=== PATIENT | female | born 1990 | race Caucasian/White ===

== ENCOUNTER 2017-08-28 21:29 | Emergency (ER) | payer OTHER ==
[2017-08-28] MEDS ORDERED: DIPHENHYDRAMINE HCL 50 MG/ML VIAL IV ONE (22:15)
[2017-08-28] MEDS ORDERED: METOCLOPRAMIDE HCL INJ/PF 10 MG/2 ML SDV IV ONE (22:15)
[2017-08-28] MEDS ORDERED: IPRATROPIUM/ALBUTEROL 0.5-2.5 MG/3 ML AMPUL NEB ONE (22:15)
[2017-08-28] MEDS ORDERED: NORMAL SALINE 1000 ML 1,000 ML IV ONE ×2 (22:17→23:18)
[2017-08-28 23:15] LABS: ABSOLUTE LYMPHOCYTES (AUTO) 1.2 10^3/uL (0.5-4.7); ABSOLUTE MONOCYTES (AUTO) 0.4 10^3/uL (0.1-1.4); ABSOLUTE NEUT (AUTO) 6.1 10^3/uL (1.7-8.2); BASOPHILS % (AUTO) 0.2 % (0-2); EOSINOPHILS % (AUTO) 0.1 % (0-6); HEMATOCRIT 31.8 % (36.0-47.0); HEMOGLOBIN 11.4 g/dL (12.0-15.5); LYMPHOCYTES % (AUTO) 15.4 % (13-45); MEAN CORPUSCULAR HEMOGLOBIN 34.3 pg (27.0-33.4); MEAN CORPUSCULAR HGB CONC 35.8 g/dL (32.0-36.0); MEAN CORPUSCULAR VOLUME 96 fl (80-97); MONOCYTES % (AUTO) 5.5 % (3-13); PLATELET COUNT 203 10^3/uL (150-450); RED BLOOD COUNT 3.32 10^6/uL (3.72-5.28); RED CELL DISTRIBUTION WIDTH 13.4 % (11.5-14.0); SEGMENTED NEUTROPHILS % (AUTO) 78.8 % (42-78); TOTAL CELLS COUNTED % (AUTO) 100 %; WHITE BLOOD COUNT 7.7 10^3/uL (4.0-10.5)
[2017-08-29] MEDS ORDERED: ALBUTEROL SULFATE 0.083% NEB 2.5 MG/3 ML AMPUL NEB ONE (00:19)
[2017-08-29 00:45] VITALS: BP 123/75
--- NOTE | 2017-08-29 03:04 | ER Document Report ---
ED General - General Chief Complaint: Breathing Difficulty Stated Complaint: TROUBLE BREATHING Time Seen by Provider: 08/28/17 22:02 TRAVEL OUTSIDE OF THE [place] IN LAST 30 DAYS: No - HPI Patient complains to provider of: Difficulty breathing Notes: Patient coming in for difficulty breathing. 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 Otherwise patient states multiple other reasons that she cannot give this time states that she was at local [facility] when she went down 1 of the hand lotion aisles did have a significant perfusion smell became significantly short of breath. Patient does admit to having a history of asthma. Patient states no improvement with her albuterol inhaler denies any fevers chills nausea vomiting denies any recent travel. Patient states the father's any of her pregnancies ever got along with 12 weeks currently she is 35 weeks prior pregnancies did not complicate her asthma upon my evaluation patient is actively vomiting patient currently states she is on Reglan. Patient states last time she took the Reglan was 3:00 today - Related Data Allergies/Adverse Reactions: ceftriaxone [From Rocephin] Allergy (Verified 08/29/17 01:41) metronidazole [From Flagyl] Allergy (Verified 08/29/17 01:41) tioconazole [From Monistat 1 (tioconazole)] Allergy (Verified 08/29/17 01:41) Past Medical History - Social History Smoking Status: Former Smoker Chew tobacco use (# tins/day): No Frequency of alcohol use: None Drug Abuse: None Family History: Reviewed & Not Pertinent Patient has suicidal ideation: No Patient has homicidal ideation: No - Past Medical History Cardiac Medical History: Reports: Hx Hypertension Pulmonary Medical History: Reports: Hx Asthma Renal/ Medical History: Denies: Hx Peritoneal Dialysis Past Surgical History: Reports: Hx Oral Surgery - wisdom teeth Review of Systems - Review of Systems Constitutional: No symptoms reported EENT: No symptoms reported Cardiovascular: No symptoms reported Respiratory: Short of breath Gastrointestinal: Nausea, Vomiting Genitourinary: No symptoms reported Female Genitourinary: No symptoms reported Musculoskeletal: No symptoms reported Skin: No symptoms reported Hematologic/Lymphatic: No symptoms reported Neurological/Psychological: No symptoms reported -: Yes All other systems reviewed and negative Physical Exam - Vital signs Vitals: Temp Pulse Resp BP Pulse Ox 98 F 102 H 24 H 94/51 L 100 08/28/17 21:37 08/28/17 21:37 08/28/17 21:37 08/28/17 21:37 08/28/17 21:37 Interpretation: Normal - General General appearance: Appears well, Alert - HEENT Head: Normocephalic, Atraumatic Eyes: Normal Pupils: PERRL - Respiratory Respiratory status: No respiratory distress Chest status: Nontender Breath sounds: Wheezing - Scattered Chest palpation: Normal - Cardiovascular Rhythm: Regular Heart sounds: Normal auscultation Murmur: No - Abdominal Inspection: Normal, Gravid female Distension: No distension Bowel sounds: Normal Tenderness: Nontender Organomegaly: No organomegaly - Back Back: Normal, Nontender - Extremities General upper extremity: Normal inspection, Nontender, Normal color, Normal ROM , Normal temperature General lower extremity: Normal inspection, Nontender, Normal color, Normal ROM , Normal temperature, Normal weight bearing. No: Janki's sign - Neurological Neuro grossly intact: Yes Cognition: Normal Orientation: AAOx4 Spencer Coma Scale Eye Opening: Spontaneous [place] Coma Scale Verbal: Oriented [place] Coma Scale Motor: Obeys Commands [place] Coma Scale Total: 15 Speech: Normal Motor strength normal: LUE, RUE, LLE, RLE Sensory: Normal - Psychological Associated symptoms: Normal affect, Normal mood - Skin Skin Temperature: Warm Skin Moisture: Dry Skin Color: Normal Course - Re-evaluation Re-evalutation: 08/29/17 04:19 Patient with improvement of her breathing initially also improvement of her nausea and vomiting. Patient did relate to nursing staff that she began to have contractions and felt like her water broke there is no evidence of this in the bed or on the wheelchair however patient stated that her contractions were becoming more frequent therefore after breathing treatment was administered lung sounds are clear we did transfer the patient to OB triage - Vital Signs Vital signs: Temp Pulse Resp BP Pulse Ox 98 F 102 H 22 H 123/75 100 08/28/17 21:37 08/28/17 21:37 08/29/17 00:02 08/29/17 00:02 08/29/17 00:02 - Laboratory Result Diagrams: 08/28/17 23:00 08/28/17 23:00 Laboratory results interpreted by me: 08/28/17 23:00 RBC 3.32 L Hgb 11.4 L Hct 31.8 L MCH 34.3 H Seg Neutrophils % 78.8 H Discharge - Discharge Clinical Impression: SOB (shortness of breath), Abdominal cramps Qualifiers: Weeks of gestation: 35 weeks Qualified Code(s): Z3A.35 - 35 weeks gestation of Condition: Good Disposition: HOME, SELF-CARE Instructions: Dyspnea, Nonspecific ([facility]), ([facility]) Additional Instructions: Follow-up with your primary care physician. Your laboratory studies today did not show any significant pathology. He may have a slight exacerbation of her asthma. Please continue with your inhaler at home or the inhaler prescribed to use 2 puffs every 4 hours as needed for shortness of breath. Prescriptions: Albuterol Sulfate [Proair HFA Inhalation Aerosol 8.5 gm MDI] 2 puff IH Q4H PRN # 1 mdi PRN Reason: Forms: Return to Work
== END 2017-08-29 00:44 | disposition home or self-care (01) ==
LOC: ER 21:29
DX: O26.93 Pregnancy related conditions, unspecified, third trimester (principal); R06.02 Shortness of breath; R10.84 Generalized abdominal pain; Z3A.35 35 weeks gestation of pregnancy
CPT/HCPCS: 94640; 99285; 96361; 96374; 96375; 36415; 85025; J1200; J2765; J7030; J7620

== ENCOUNTER 2017-08-29 00:10 | Outpatient (CLI) | payer OTHER ==
[2017-08-29 01:11] LABS: APPEARANCE,URINE CLEAR; BILIRUBIN,URINE NEGATIVE (NEGATIVE); COLOR,URINE YELLOW; GLUCOSE, URINE NEGATIVE (NEGATIVE); KETONES,URINE TRACE mg/dL (NEGATIVE); LEUKOCYTE ESTERASE,URINE NEGATIVE (NEGATIVE); NITRITE,URINE NEGATIVE (NEGATIVE); PROTEIN,URINE NEGATIVE (NEGATIVE); URINE SPECIFIC GRAVITY 1.012; UROBILINOGEN,URINE NEGATIVE mg/dL (<2.0)
[2017-08-29 01:38] LABS: URINE AMPHETAMINES SCREEN NEGATIVE; URINE BARBITURATES SCREEN NEGATIVE; URINE BENZODIAZEPINES SCREEN NEGATIVE; URINE COCAINE SCREEN NEGATIVE; URINE MARIJUANA (THC) SCREEN NEGATIVE; URINE METHADONE SCREEN NEGATIVE; URINE PHENCYCLIDINE SCREEN NEGATIVE
[2017-08-29 01:46] LABS: AMNISURE (ROM) NEGATIVE (NEGATIVE)
--- NOTE | 2017-08-29 02:24 | Non Stress Test Report ---
Non Stress Test Datetime Report Generated by CPN: 08/29/2017 02:24 DEMOGRAPHIC Test Number: 1 EGA NST: 35.2 INDICATION Indication for Study: Ordered by Provider MONITORING Monitor Explained: Monitor Explained; Test Explained; Patient Verbalized Understanding Time on Monitor: 08/29/2017 01:10 Time off Monitor: 08/29/2017 01:53 NST Duration: 43 NST INTERVENTIONS NST Interventions: PO Hydration Physician Notified NST: Dr. Marcus BABY A: [id number] BABY A Movement : Present Contraction Frequency : 0 FHR Baseline : 145 Accelerations : 15X15 Decelerations : None Variability : Moderate 6-25bpm NST Review: Meets Criteria for Reactive NST NST Review and Verified By : BEATRIS Edgar NST Results: Reactive NST REPORT Report Trigger: Send Report
== END 2017-08-29 02:16 | disposition home or self-care (01) ==
LOC: LC 00:10
PROVIDERS: ATTEND Obstetrics & Gynecology Gynecology
PROC: 4A1HXCZ Monitoring of Products of Conception, Cardiac Rate, External Approach (ICD-10-PCS; principal; 2017-08-29)
DX: O47.03 False labor before 37 completed weeks of gestation, third trimester (principal); Z3A.35 35 weeks gestation of pregnancy
CPT/HCPCS: 80307; 81001; 84112; 94760

== ENCOUNTER 2017-10-07 21:54 | Emergency (ER) | payer OTHER ==
--- NOTE | 2017-10-08 00:14 | ER Document Report ---
ED General - General Chief Complaint: Abdominal Pain Stated Complaint: STOMACH PAIN Time Seen by Provider: 10/07/17 23:21 Notes: Patient is a 27-year-old female who approximately 12 days ago had a delivery of her . Patient says since then she has continued to have recurrent vaginal bleeding. She says she just has not felt quite "right" since her discharge from hospital. 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 Delivery was performed at [facility]. She did go to the [facility] ER 2 days ago and they told everything was okay. Patient still feels that something is not right. She thinks that her stitches are coming undone. She denies any fevers. No dysuria. No other complaints this time. She does have history of lupus. TRAVEL OUTSIDE OF THE [place] IN LAST 30 DAYS: No - Related Data Allergies/Adverse Reactions: ceftriaxone [From Rocephin] Allergy (Verified 08/29/17 01:41) metronidazole [From Flagyl] Allergy (Verified 08/29/17 01:41) Metronidazole HCl [From Flagyl] Allergy (Verified 02/15/17 22:57) tioconazole [From Monistat 1 (tioconazole)] Allergy (Verified 08/29/17 01:41) Amphetamine Aspartate * [From Adderall] Adverse Reaction (Verified 02/15/17 22: 57) amphetamine sulfate [From Adderall] Adverse Reaction (Verified 02/15/17 22:57) dextroamphetamine [From Adderall] Adverse Reaction (Verified 02/15/17 22:57) methylphenidate HCl [From Ritalin] Adverse Reaction (Verified 02/15/17 22:57) Past Medical History - Social History Smoking Status: Former Smoker Chew tobacco use (# tins/day): Yes Frequency of alcohol use: None Drug Abuse: None Family History: Reviewed & Not Pertinent Patient has suicidal ideation: No Patient has homicidal ideation: No - Past Medical History Cardiac Medical History: Reports: Hx Hypertension Pulmonary Medical History: Reports: Hx Asthma Renal/ Medical History: Denies: Hx Peritoneal Dialysis Psychiatric Medical History: Reports: Hx Attention Deficit Hyperactivity Disorder, Hx Bipolar Disorder, Hx Depression - Major Past Surgical History: Reports: Hx Gynecologic Surgery - , Hx Oral Surgery - wisdom teeth - Immunizations Hx Diphtheria, Pertussis, Tetanus Vaccination: Yes Review of Systems - Review of Systems Notes: My Normal Review Basic REVIEW OF SYSTEMS: CONSTITUTIONAL : Denies fever, chills, or sweats. Denies recent illness. EENT: Denies eye, ear, throat, or mouth pain or symptoms. Denies nasal or sinus congestion. RESPIRATORY: Denies cough, cold, or chest congestion. Denies shortness of breath, difficulty breathing, or wheezing. GASTROINTESTINAL: Lower abdominal pain. Some nausea GENITOURINARY: Denies difficulty urinating, painful urination, burning, frequency, or blood in urine. FEMALE GENITOURINARY: Vaginal bleeding MUSCULOSKELETAL: Denies neck or back pain or joint pain or swelling. SKIN: Denies rash or skin lesions. NEUROLOGICAL: Denies altered mental status or loss of consciousness. Denies headache. Denies weakness or paralysis or loss of use of either side. Denies problems with gait or speech. Denies sensory or motor loss. ALL OTHER SYSTEMS REVIEWED AND NEGATIVE. Physical Exam - Vital signs Vitals: Temp Pulse Resp BP Pulse Ox 98.5 F 93 16 127/62 H 98 10/07/17 23:12 10/07/17 23:12 10/07/17 23:12 10/07/17 23:12 10/07/17 23:12 - Notes Notes: General Appearance: Well nourished, alert, cooperative, no acute distress, moderate obvious discomfort. Vitals: reviewed, See vital signs table. Eyes: PERRL, EOMI, Conjuctiva clear Mouth: No decreasd moisture Lungs: No wheezing, No rales, No rhonci, No accessory muscle use, good air exchange bilaterally. Heart: Normal rate, Regular rythm, No murmur, no rub Abdomen: Normal BS, soft, No rigidity, incision site is well-appearing without any redness or swelling around the site. Small amount of pain to palpation along the left lateral aspect of the incision site. No drainage from the incision site., No guarding, no rebound, Pelvic exam: Normal external genitalia. Some dry blood over external vaginal area from recent vaginal bleeding. No abnormal discharge in vaginal vault. She does have small amount of blood in vaginal vault without clots. Pelvic exam performed with female macaroni makerRashmi RN. Extremities: strength 5/5 in all extremities, good pulses in all extremities, no swelling or tenderness in the extremities, no edema. Skin: warm, dry, appropriate color, no rash Neuro: speech clear, oriented x 3, normal affect, responds appropriately to questions. Course - Re-evaluation Re-evalutation: 10/08/17 22:34 Patient's pelvic exam showed some blood in vaginal vault but no large clots were life-threatening hemorrhage. Denies any abnormal discharge or signs of infection. Wet prep does have some bacteria in it. Urinalysis nonspecific and most likely has some white blood cells related to contamination. On exam patient's abdomen is fine. Her wound looks well. Patient herself looks very well and is not showing signs of sepsis or life-threatening infection. Does not have a leukocytosis. She is not currently anemic. I did call and speak with the OB doctor at [facility], Dr. Dunn. She is very familiar with this patient in her care. Dr. Dunn agrees that antibiotics are needed at this time. She said she will have the office call the patient first in the morning and give her follow-up appointment next 1-2 days. Informed patient to return to ER if she has worsening bleeding, fevers, or worsening pain. I informed her of the plan to follow-up with her doctor next 1-2 days. Patient has been agree with plan. Dictation of this chart was performed using voice recognition software; therefore, there may be some unintended grammatical errors. - Vital Signs Vital signs: Temp Pulse Resp BP Pulse Ox 99.3 F 85 18 109/79 98 10/08/17 03:20 10/08/17 03:20 10/08/17 02:08 10/08/17 03:00 10/08/17 03:20 - Laboratory Result Diagrams: 10/08/17 00:15 Laboratory results interpreted by me: 10/08/17 02:10 Urine Blood LARGE H Ur Leukocyte Esterase MODERATE H Urine Ascorbic Acid 40 H Discharge - Discharge Clinical Impression: Pelvic pain, Vaginal bleeding Condition: Good Disposition: HOME, SELF-CARE Additional Instructions: Please return to the ER immediately if you have fevers, worsening pain, increasing bleeding, or have concerns that you are worsening. I spoke with Dr. Dunn who will have the OB office call your house today to give you an appointment in the next 1-2 days Referrals: VINNY HAMEED PA [Primary Care Provider] - Follow up as needed
[2017-10-08 00:31] LABS: ABSOLUTE LYMPHOCYTES (AUTO) 1.6 10^3/uL (0.5-4.7); ABSOLUTE MONOCYTES (AUTO) 0.3 10^3/uL (0.1-1.4); ABSOLUTE NEUT (AUTO) 3.4 10^3/uL (1.7-8.2); BASOPHILS % (AUTO) 0.2 % (0-2); EOSINOPHILS % (AUTO) 0.9 % (0-6); HEMOGLOBIN 12.9 g/dL (12.0-15.5); LYMPHOCYTES % (AUTO) 30.2 % (13-45); MEAN CORPUSCULAR HEMOGLOBIN 32.4 pg (27.0-33.4); MEAN CORPUSCULAR HGB CONC 34.8 g/dL (32.0-36.0); MEAN CORPUSCULAR VOLUME 93 fl (80-97); MONOCYTES % (AUTO) 6.3 % (3-13); PLATELET COUNT 383 10^3/uL (150-450); RED BLOOD COUNT 3.97 10^6/uL (3.72-5.28); RED CELL DISTRIBUTION WIDTH 13.8 % (11.5-14.0); SEGMENTED NEUTROPHILS % (AUTO) 62.4 % (42-78); TOTAL CELLS COUNTED % (AUTO) 100 %; WHITE BLOOD COUNT 5.4 10^3/uL (4.0-10.5)
[2017-10-08 00:33] LABS: RBCS (WET MOUNT) 3+ RBCS SEEN; T.VAGINALIS (WET MOUNT) NO TRICHOMONAS SEEN; WBCS (WET MOUNT) 2+ WBCS SEEN; YEAST (WET MOUNT) NO YEAST SEEN
[2017-10-08 00:34] LABS: BACTERIA (WET MOUNT) 3+ BACTERIA SEEN; EPITHELIALS (WET MOUNT) 3+ EPITHELIALS SEEN
[2017-10-08 02:33] LABS: APPEARANCE,URINE SLIGHTLY-CLOUDY; BILIRUBIN,URINE NEGATIVE (NEGATIVE); COLOR,URINE YELLOW; GLUCOSE, URINE NEGATIVE (NEGATIVE); KETONES,URINE NEGATIVE (NEGATIVE); LEUKOCYTE ESTERASE,URINE MODERATE (NEGATIVE); NITRITE,URINE NEGATIVE (NEGATIVE); PROTEIN,URINE NEGATIVE (NEGATIVE); URINE SPECIFIC GRAVITY 1.012; UROBILINOGEN,URINE NEGATIVE mg/dL (<2.0)
--- NOTE | 2017-10-08 02:53 | RADIOLOGY REPORT (SQ) ---
EXAM DESCRIPTION: XR ABDOMEN 2 VIEWS SUPINE ERECT COMPLETED DATE/TME: 10/08/2017 00:12 CLINICAL HISTORY: 27 years Female, abdominal pain COMPARISON: None. NUMBER OF VIEWS/TECHNIQUE: 2 FINDINGS: Intestinal gas pattern is within normal limits. No suspicious calcification. Grossly intact skeletal structures. IMPRESSION: No acute findings.
[2017-10-08 03:21] VITALS: BP 109/79
== END 2017-10-08 04:12 | disposition home or self-care (01) ==
LOC: ER 21:54
DX: O90.9 Complication of the puerperium, unspecified (principal); R10.2 Pelvic and perineal pain; O72.1 Other immediate postpartum hemorrhage
CPT/HCPCS: 36415; 74019; 81001; 84702; 85025; 87210; 99284

== ENCOUNTER 2017-11-05 10:18 | Emergency (ER) | payer OTHER ==
[2017-11-05] MEDS ORDERED: NORMAL SALINE 1000 ML 1,000 ML IV ONE (10:35)
--- NOTE | 2017-11-05 10:37 | ER Document Report ---
ED Medical Screen (RME) - General Chief Complaint: Vaginal Pain Stated Complaint: URINARY ISSUE Time Seen by Provider: 11/05/17 10:34 Notes: 27 years old female with a history of lupus was sent over by the primary care physician Dr. Villegas, for bleeding per urethra. And general body aches and pain flank pains. No fever chills or other constitutional times. TRAVEL OUTSIDE OF THE [place] IN LAST 30 DAYS: No - Related Data Allergies/Adverse Reactions: ceftriaxone [From Rocephin] Allergy (Verified 11/05/17 10:19) metronidazole [From Flagyl] Allergy (Verified 11/05/17 10:19) Metronidazole HCl [From Flagyl] Allergy (Verified 11/05/17 10:19) tioconazole [From Monistat 1 (tioconazole)] Allergy (Verified 11/05/17 10:19) Amphetamine Aspartate * [From Adderall] Adverse Reaction (Verified 11/05/17 10: 19) amphetamine sulfate [From Adderall] Adverse Reaction (Verified 11/05/17 10:19) dextroamphetamine [From Adderall] Adverse Reaction (Verified 11/05/17 10:19) methylphenidate HCl [From Ritalin] Adverse Reaction (Verified 11/05/17 10:19) Past Medical History - Past Medical History Cardiac Medical History: Reports: Hx Hypertension Pulmonary Medical History: Reports: Hx Asthma Renal/ Medical History: Denies: Hx Peritoneal Dialysis Psychiatric Medical History: Reports: Hx Attention Deficit Hyperactivity Disorder, Hx Bipolar Disorder, Hx Depression - Major Past Surgical History: Reports: Hx Gynecologic Surgery - , Hx Oral Surgery - wisdom teeth - Immunizations Hx Diphtheria, Pertussis, Tetanus Vaccination: Yes Physical Exam - Vital signs Vitals: Temp Pulse Resp BP Pulse Ox 98.5 F 92 18 107/78 100 11/05/17 10:11/05/17 10:11/05/17 10:11/05/17 10:29 11/05/17 10:29 Course - Vital Signs Vital signs: Temp Pulse Resp BP Pulse Ox 98.5 F 92 18 107/78 100 11/05/17 10:29 11/05/17 10:29 11/05/17 10:29 11/05/17 10:29 11/05/17 10:29 Doctor's Discharge - Discharge Referrals: VINNY HAMEED PA [Primary Care Provider] - Follow up as needed
[2017-11-05 12:08] LABS: ABSOLUTE LYMPHOCYTES (AUTO) 1.5 10^3/uL (0.5-4.7); ABSOLUTE MONOCYTES (AUTO) 0.3 10^3/uL (0.1-1.4); ABSOLUTE NEUT (AUTO) 2.9 10^3/uL (1.7-8.2); BASOPHILS % (AUTO) 0.1 % (0-2); HEMATOCRIT 37.3 % (36.0-47.0); HEMOGLOBIN 12.8 g/dL (12.0-15.5); LYMPHOCYTES % (AUTO) 32.5 % (13-45); MEAN CORPUSCULAR HEMOGLOBIN 31.6 pg (27.0-33.4); MEAN CORPUSCULAR HGB CONC 34.4 g/dL (32.0-36.0); MEAN CORPUSCULAR VOLUME 92 fl (80-97); MONOCYTES % (AUTO) 5.8 % (3-13); PLATELET COUNT 262 10^3/uL (150-450); RED BLOOD COUNT 4.06 10^6/uL (3.72-5.28); RED CELL DISTRIBUTION WIDTH 12.9 % (11.5-14.0); SEGMENTED NEUTROPHILS % (AUTO) 60.6 % (42-78); TOTAL CELLS COUNTED % (AUTO) 100 %; WHITE BLOOD COUNT 4.7 10^3/uL (4.0-10.5)
[2017-11-05 12:15] LABS: APPEARANCE,URINE CLEAR; BILIRUBIN,URINE NEGATIVE (NEGATIVE); COLOR,URINE STRAW; GLUCOSE, URINE NEGATIVE (NEGATIVE); KETONES,URINE NEGATIVE (NEGATIVE); LEUKOCYTE ESTERASE,URINE NEGATIVE (NEGATIVE); NITRITE,URINE NEGATIVE (NEGATIVE); PROTEIN,URINE NEGATIVE (NEGATIVE); URINE SPECIFIC GRAVITY 1.012; UROBILINOGEN,URINE NEGATIVE mg/dL (<2.0)
--- NOTE | 2017-11-05 12:15 | ER Document Report ---
ED General - General Chief Complaint: Vaginal Pain Stated Complaint: URINARY ISSUE Time Seen by Provider: 11/05/17 10:34 Notes: Patient says that she has been seeing blood in her urine and from her urethra for the past several weeks. She is also having some urgency and frequency of urination. About 5 weeks ago, patient had a delivering her first child. She had some apparent infection with fevers and there was concern for the health and was performed. Patient was in the hospital for about 4 days and discharged without any sequelae. Baby is fine. She is this patient's first child and first for this patient. Patient is not nursing her baby. Says she has been running some low-grade fevers. Patient noticed this blood occurring about 5 weeks ago. She has had some nausea and vomited blood recently. She says that happens "all the time". Denies any chest pains, difficulty breathing or shortness of breath, or abdominal pains. Patient says that she is had itching of her arms and her legs and all over her body for a long time. Also says that she periodically has petechiae, although she does not have any to see today. Patient has a history of asthma, lupus, sees Dr. Wilson for her lupus. On Depakote for control. TRAVEL OUTSIDE OF THE [place] IN LAST 30 DAYS: No - Related Data Allergies/Adverse Reactions: ceftriaxone [From Rocephin] Allergy (Verified 11/05/17 10:19) metronidazole [From Flagyl] Allergy (Verified 11/05/17 10:19) Metronidazole HCl [From Flagyl] Allergy (Verified 11/05/17 10:19) tioconazole [From Monistat 1 (tioconazole)] Allergy (Verified 11/05/17 10:19) Amphetamine Aspartate * [From Adderall] Adverse Reaction (Verified 11/05/17 10: 19) amphetamine sulfate [From Adderall] Adverse Reaction (Verified 11/05/17 10:19) Androgenic Anabolic Steroid Adverse Reaction (Verified 11/05/17 10:39) dextroamphetamine [From Adderall] Adverse Reaction (Verified 11/05/17 10:19) methylphenidate HCl [From Ritalin] Adverse Reaction (Verified 11/05/17 10:19) Past Medical History - Social History Smoking Status: Current Some Day Smoker Frequency of alcohol use: None Drug Abuse: None Family History: Reviewed & Not Pertinent Patient has suicidal ideation: No Patient has homicidal ideation: No - Past Medical History Cardiac Medical History: Denies: Hx Hypertension Pulmonary Medical History: Reports: Hx Asthma Endocrine Medical History: Denies: Hx Diabetes Mellitus Type 1, Hx Diabetes Mellitus Type 2 Renal/ Medical History: Denies: Hx Renal Insufficiency GI Medical History: Reports: Other - No history of any liver disease. Psychiatric Medical History: Reports: Hx Attention Deficit Hyperactivity Disorder, Hx Bipolar Disorder, Hx Depression - Major Past Surgical History: Reports: Hx Section, Hx Gynecologic Surgery - , Hx Oral Surgery - wisdom teeth - Immunizations Hx Diphtheria, Pertussis, Tetanus Vaccination: Yes Review of Systems - Review of Systems Notes: REVIEW OF SYSTEMS: CONSTITUTIONAL : Denies fever. EENT: Denies eye, ear, nose or mouth or throat pain or other symptoms. CARDIOVASCULAR: Denies chest pain. RESPIRATORY: Denies cough, chest congestion, or shortness of breath. GASTROINTESTINAL: Denies abdominal pain or nausea, vomiting, or diarrhea. GENITOURINARY: See HPI. MUSCULOSKELETAL: Denies back or neck pain. Denies joint pain or swelling. SKIN: Denies any rash or skin lesions. Complains of chronic itching and occasional petechiae, although none present at this time. NEUROLOGICAL: Denies LOC or altered mental status. Denies headache. Denies sensory loss or motor deficits. ALL OTHER SYSTEMS REVIEWED AND NEGATIVE. Physical Exam - Vital signs Vitals: Temp Pulse Resp BP Pulse Ox 98.5 F 92 18 107/78 100 11/05/17 10:29 11/05/17 10:29 11/05/17 10:29 11/05/17 10:11/05/17 10:29 Interpretation: Normal - Notes Notes: PHYSICAL EXAMINATION: GENERAL: Well-appearing, in no acute distress. Vital signs are all essentially normal. Afebrile. HEAD: Atraumatic, normocephalic. ENT: oropharynx clear without exudates. Moist mucous membranes. NECK: Normal range of motion, supple. LUNGS: Breath sounds clear and equal bilaterally. HEART: Regular rate and rhythm without murmurs. ABDOMEN: Soft, nontender. No guarding or rebound. No masses. BACK: No tenderness throughout entire back. EXTREMITIES: Normal range of motion without pain. NEUROLOGICAL: Normal speech, normal gait. Normal sensory, motor, and reflex exams. Awake, alert, and oriented x3. Cranial nerves normal. PSYCH: Normal mood, normal affect. SKIN: Warm, dry, no rashes. No lesions. No petechiae. Course - Re-evaluation Re-evalutation: 11/05/17 13:59 Patient's entire workup is completely normal. Only a single red cell seen on patient's urinalysis. Urine culture ordered. Patient was advised of all these findings. Recommended she follow-up with her primary care provider for referral to a urologist for further evaluation if symptoms persist. - Vital Signs Vital signs: Temp Pulse Resp BP Pulse Ox 98.3 F 97 16 96/51 L 99 11/05/17 13:51 11/05/17 13:51 11/05/17 11:30 11/05/17 13:51 11/05/17 13:51 - Laboratory Result Diagrams: 11/05/17 11:36 11/05/17 11:36 Laboratory results interpreted by me: 11/05/17 11/05/17 11:00 11:36 Calcium 10.4 H Urine Blood SMALL H - Diagnostic Test Radiology reviewed: Image reviewed, Reports reviewed - CT of the abdomen and pelvis without contrast, stone survey, was completely normal and negative. Discharge - Discharge Clinical Impression: Hematuria Condition: Stable Disposition: HOME, SELF-CARE Additional Instructions: Hematuria Hematuria, or blood in your urine, can be caused by minor medical problems , such as a bladder infection, or by more serious medical conditions, such as kidney stones or even tumors of the bladder or kidney. If the cause of the hematuria is known (such as a bladder infection) and can be treated, it may not need further evaluation. If the cause is not known, it will usually require further evaluation by a specialist, such as a urologist. In particular, unexplained hematuria in the older patient must be evaluated to rule out a serious condition, such as a bladder or kidney tumor. If the hematuria worsens or you are passing clots and then are unable to urinate, you should be re-evaluated. A catheter may need to be placed in the bladder to permit passage of urine. If you develop high fever, severe pain, or other new or worsening symptoms, return to the Emergency Department for re- evaluation. NORMAL EXAM AND WORKUP: At this time, your examination and workup show no significant abnormality. No significant abnormal physical findings were noted. All laboratory, EKG, and imaging (x-ray, CT scans, ultrasound) studies that were ordered show no significant abnormality. Although your examination and all studies that were ordered showed no significant abnormal finding, there are no examinations and no studies that are 100% accurate. There is always the possibility that some abnormality could exist and not be detected with physical examination or within the limits and capabilities of laboratory and other studies. You should return or follow up as you were instructed on your visit today for further evaluation if your symptoms do not resolve. FOLLOW-UP CARE: If you have been referred to a physician for follow-up care, call the physician s office for an appointment as you were instructed or within the next two days. If you experience worsening or a significant change in your symptoms, notify the physician immediately or return to the Emergency Department at any time for re-evaluation. Referrals: JHONNY BAHENA MD [ACTIVE STAFF] - Follow up as needed
[2017-11-05 12:17] LABS: INTERNATIONAL RATION (INR) 0.99; PROTHROMBIN TIME 13.5 SEC (11.4-15.4)
[2017-11-05 12:29] LABS: ALANINE AMINOTRANSFERASE 51 U/L (9-52); ALBUMIN 4.8 g/dL (3.5-5.0); ALKALINE PHOSPHATASE 60 U/L (38-126); ANION GAP 15 (5-19); ASPARTATE AMINO TRANSFERASE 33 U/L (14-36); BILIRUBIN,DIRECT 0.2 mg/dL (0.0-0.4); BILIRUBIN,TOTAL 0.4 mg/dL (0.2-1.3); BLOOD UREA NITROGEN 12 mg/dL (7-20); CALCIUM 10.4 mg/dL (8.4-10.2); CARBON DIOXIDE 22 mmol/L (22-30); CHLORIDE 105 mmol/L (98-107); GLUCOSE 89 mg/dL (75-110); LIPASE 104.3 U/L (23-300); POTASSIUM 4.1 mmol/L (3.6-5.0); SODIUM 142.2 mmol/L (137-145); TOTAL PROTEIN 7.9 g/dL (6.3-8.2)
--- NOTE | 2017-11-05 12:38 | RADIOLOGY REPORT (SQ) ---
EXAM DESCRIPTION: CT LTD RENAL STONE PROTOCOL ON COMPLETED DATE/TIME: 11/05/2017 12:28 pm REASON FOR STUDY: Hematuria COMPARISON: None. TECHNIQUE: CT scan of the abdomen and pelvis performed without intravenous or oral contrast. Images reviewed with lung, soft tissue, and bone windows. Reconstructed coronal and sagittal MPR images revi ewed. All images stored on PACS. All CT scanners at this facility use dose modulation, iterative reconstruction, and/or weight based d osing when appropriate to reduce radiation dose to as low as reasonably achievable (ALARA). [facility]: Dose Right [facility]: CareDose [facility]: Dose Right [facility]: Teradose 4D [facility]: Smart [employer] RADIATION DOSE: CT Rad equipment meets quality standard of care and radiation dose reduction techniq ues were employed. CTDIvol: 6.4 mGy. DLP: 338 mGy-cm.mGy. LIMITATIONS: None. FINDINGS: LOWER CHEST: No significant findings. No nodules or infiltrates. NON-CONTRASTED LIVER, SPLEEN, ADRENALS: Evaluation limited by lack of IV contrast. No identified sign ificant masses. PANCREAS: No masses. No peripancreatic inflammatory changes. GALLBLADDER: No identified stones by CT criteria. No inflammatory changes to suggest cholecystitis. RIGHT KIDNEY AND URETER: No suspicious masses. Assessment limited by lack of IV contrast. No signif icant calcifications. No hydronephrosis or hydroureter. LEFT KIDNEY AND URETER: No suspicious masses. Assessment limited by lack of IV contrast. No signifi cant calcifications. No hydronephrosis or hydroureter. AORTA AND RETROPERITONEUM: No aneurysm. No retroperitoneal masses or adenopathy. BOWEL AND PERITONEAL CAVITY: No obvious masses or inflammatory changes. No free fluid. APPENDIX: Normal. PELVIS, BLADDER, AND ABDOMINAL WALL:No abnormal masses. No free fluid. Bladder normal. BONES: No significant findings. OTHER: No other significant finding. IMPRESSION: NO SIGNIFICANT OR ACUTE PROCESS IN THE ABDOMEN OR PELVIS. COMMENT: Quality ID # [id number]: Final reports with documentation of one or more dose reduction techniques (e.g., Automated exposure control, adjustment of the mA and/or kV according to patient size, use of iterative reconstruction technique) TECHNICAL DOCUMENTATION: JOB ID: [id number] [employer]- All Rights Reserved Reading location - IP/workstation name: [email or web address]
[2017-11-05 13:55] VITALS: BP 96/51
== END 2017-11-05 14:19 | disposition home or self-care (01) ==
LOC: ER 10:18
DX: R31.9 Hematuria, unspecified (principal); R10.9 Unspecified abdominal pain
CPT/HCPCS: 99284; 96360; 96361; 36415; 87086; 83690; 85025; 85610; 81025; 80053; 81001; 76380; J7030

== ENCOUNTER → 2017-12-17 | Outpatient (CLI) | payer OTHER ==
--- NOTE | 2017-12-17 17:34 | RADIOLOGY REPORT (SQ) ---
EXAM DESCRIPTION: U/S RETROPERITON (RENAL/AORTA) COMPLETED DATE/TIME: 12/17/2017 4:55 pm REASON FOR STUDY: R31.9 HEMATURIA, UNSPECIFIED R31.9 HEMATURIA, UNSPECIFIED COMPARISON: None. TECHNIQUE: Dynamic and static grayscale images acquired of the kidneys and bladder and recorded on P ACS. Additional selected color Doppler and spectral images recorded. LIMITATIONS: None. FINDINGS: RIGHT KIDNEY: Normal size. Normal echogenicity. No solid or suspicious masses. No hydronep hrosis. No calcifications. LEFT KIDNEY: Normal size. Normal echogenicity. No solid or suspicious masses. No hydronephrosis. No calcifications. BLADDER: No masses. OTHER FINDINGS: No other significant finding. IMPRESSION: NORMAL RENAL AND BLADDER ULTRASOUND. TECHNICAL DOCUMENTATION: JOB ID: [id number] [employer]- All Rights Reserved Reading location - IP/workstation name: [email or web address]
== END ==
LOC: RAD 16:34
PROVIDERS: ATTEND Physician Assistant
DX: R31.9 Hematuria, unspecified (principal)
CPT/HCPCS: 76770

== ENCOUNTER 2018-02-10 03:08 | Emergency (ER) | payer OTHER ==
--- NOTE | 2018-02-10 04:32 | ER Document Report ---
ED General - General Chief Complaint: Pelvic Pain Stated Complaint: ABDOMINAL PAIN Time Seen by Provider: 02/10/18 03:52 Notes: Patient is a 28-year-old female presents with complaint of passing dark blood. States sometimes is almost black in consistency. She says she feels a little bit lightheaded but no difficulty breathing. She had a back in September. She was given a shot of the pelvis since then. Just over a month ago she was diagnosed with PID and treated. She says she still with the same partner. They do not use condoms. She says we "use the pull out method". Denies any fevers. No vomiting. Some lower abdominal cramping. No dysuria. No other complaints at this time. She has a history of lupus for which she takes medications for. TRAVEL OUTSIDE OF THE [place] IN LAST 30 DAYS: No - Related Data Allergies/Adverse Reactions: ceftriaxone [From Rocephin] Allergy (Verified 11/05/17 10:19) metronidazole [From Flagyl] Allergy (Verified 11/05/17 10:19) Metronidazole HCl [From Flagyl] Allergy (Verified 11/05/17 10:19) tioconazole [From Monistat 1 (tioconazole)] Allergy (Verified 11/05/17 10:19) Amphetamine Aspartate * [From Adderall] Adverse Reaction (Verified 11/05/17 10: 19) amphetamine sulfate [From Adderall] Adverse Reaction (Verified 11/05/17 10:19) Androgenic Anabolic Steroid Adverse Reaction (Verified 11/05/17 10:39) dextroamphetamine [From Adderall] Adverse Reaction (Verified 11/05/17 10:19) methylphenidate HCl [From Ritalin] Adverse Reaction (Verified 11/05/17 10:19) Past Medical History - Social History Smoking Status: Unknown if Ever Smoked Frequency of alcohol use: None Drug Abuse: None Family History: Reviewed & Not Pertinent - Past Medical History Cardiac Medical History: Denies: Hx Hypertension Pulmonary Medical History: Reports: Hx Asthma Endocrine Medical History: Denies: Hx Diabetes Mellitus Type 1, Hx Diabetes Mellitus Type 2 Renal/ Medical History: Denies: Hx Peritoneal Dialysis, Hx Renal Insufficiency Psychiatric Medical History: Reports: Hx Attention Deficit Hyperactivity Disorder, Hx Bipolar Disorder, Hx Depression - Major Past Surgical History: Reports: Hx Section, Hx Gynecologic Surgery - , Hx Oral Surgery - wisdom teeth - Immunizations Hx Diphtheria, Pertussis, Tetanus Vaccination: Yes Review of Systems - Review of Systems Notes: My Normal Review Basic REVIEW OF SYSTEMS: CONSTITUTIONAL : Denies fever, chills, or sweats. Denies recent illness. CARDIOVASCULAR: Denies chest pain. RESPIRATORY: Denies cough, cold, or chest congestion. Denies shortness of breath, difficulty breathing, or wheezing. GASTROINTESTINAL: Abdominal cramping. Denies nausea, vomiting, or diarrhea. GENITOURINARY: Denies difficulty urinating, painful urination, burning, frequency, or blood in urine. FEMALE GENITOURINARY: abnormal vaginal bleeding MUSCULOSKELETAL: Denies neck or back pain or joint pain or swelling. SKIN: Denies rash or skin lesions. NEUROLOGICAL: Denies altered mental status or loss of consciousness. Denies headache. Denies weakness or paralysis or loss of use of either side. Denies problems with gait or speech. Denies sensory or motor loss. ALL OTHER SYSTEMS REVIEWED AND NEGATIVE. Physical Exam - Vital signs Vitals: Temp Pulse Resp BP Pulse Ox 98.3 F 84 16 114/67 98 02/10/18 03:11 02/10/18 03:11 02/10/18 03:11 02/10/18 03:11 02/10/18 03:11 - Notes Notes: General Appearance: Well nourished, alert, cooperative, no acute distress, no obvious discomfort. Vitals: reviewed, See vital signs table. Eyes: PERRL, EOMI, Conjuctiva clear Mouth: No decreasd moisture Lungs: No wheezing, No rales, No rhonci, No accessory muscle use, good air exchange bilaterally. Heart: Normal rate, Regular rythm, No murmur, no rub Abdomen: Normal BS, soft, No rigidity, No abdominal tenderness, No guarding, no rebound, no abdominal masses, no organomegaly Pelvic: Pelvic exam performed with Shawna Avila, at bedside. Normal external genitalia. Speculum exam shows small amount of dark brownish material consistent with degraded blood. No active large hemorrhage. No abnormal discharge. No significant pain on exam. Extremities: good pulses in all extremities, no swelling or tenderness in the extremities, no edema. Skin: warm, dry, appropriate color, no rash Neuro: speech clear, oriented x 3, normal affect, responds appropriately to questions. Course - Re-evaluation Re-evalutation: 02/10/18 06:39 Patient continues to look very well on exam. Vital signs are stable. CBC shows normal hemoglobin. She is not . Pelvic exam was unremarkable except for some dark degraded blood in the vaginal vault. No active bleeding coming from the cervix at this time. Patient's wet prep shows evidence of rectal vaginosis. I feel she is safe to be discharged home. I strongly encouraged to return to the ER if she has fevers, worsening pain, heavy bleeding , or if she feels unwell. Patient agrees with plan and will be discharged home. Dictation of this chart was performed using voice recognition software; therefore, there may be some unintended grammatical errors. - Vital Signs Vital signs: Temp Pulse Resp BP Pulse Ox 98.3 F 84 16 114/67 98 02/10/18 03:11 02/10/18 03:11 02/10/18 03:11 02/10/18 03:11 02/10/18 03:11 - Laboratory Result Diagrams: 02/10/18 04:22 Laboratory results interpreted by me: 02/10/18 04:22 Hgb 11.9 L Hct 33.7 L Discharge - Discharge Additional Instructions: Your wet prep is suggestive of bacterial vaginosis. I have prescribed clindamycin vaginal suppositories for you to use over the next 3 days. This should take care of the infection. 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 The dark blood using past vaginally is likely old blood that is starting to degrade before being passed from the uterus. I denies any other concerning findings on exam. At this time if he is safe to be discharged home but strongly encouraged to return to ER for fevers, worsening pain, heavy vaginal bleeding, or if you feel unwell. Prescriptions: Clindamycin Phosphate [Cleocin 100 mg Vaginal Suppository] 100 mg VG QPM #3 supp.vag Referrals: JEUS PORTILLO PA [Primary Care Provider] - 02/13/18
[2018-02-10 04:36] LABS: ABSOLUTE LYMPHOCYTES (AUTO) 2.2 10^3/uL (0.5-4.7); ABSOLUTE MONOCYTES (AUTO) 0.3 10^3/uL (0.1-1.4); ABSOLUTE NEUT (AUTO) 2.4 10^3/uL (1.7-8.2); BASOPHILS % (AUTO) 0.2 % (0-2); EOSINOPHILS % (AUTO) 0.9 % (0-6); HEMATOCRIT 33.7 % (36.0-47.0); HEMOGLOBIN 11.9 g/dL (12.0-15.5); LYMPHOCYTES % (AUTO) 44.3 % (13-45); MEAN CORPUSCULAR HEMOGLOBIN 31.8 pg (27.0-33.4); MEAN CORPUSCULAR HGB CONC 35.4 g/dL (32.0-36.0); MEAN CORPUSCULAR VOLUME 90 fl (80-97); MONOCYTES % (AUTO) 6.1 % (3-13); PLATELET COUNT 248 10^3/uL (150-450); RED BLOOD COUNT 3.75 10^6/uL (3.72-5.28); RED CELL DISTRIBUTION WIDTH 12.9 % (11.5-14.0); SEGMENTED NEUTROPHILS % (AUTO) 48.5 % (42-78); TOTAL CELLS COUNTED % (AUTO) 100 %
[2018-02-10 06:03] LABS: BACTERIA (WET MOUNT) 3+ BACTERIA SEEN; RBCS (WET MOUNT) NO RBCS SEEN; T.VAGINALIS (WET MOUNT) NO TRICHOMONAS SEEN; WBCS (WET MOUNT) 2+ WBCS SEEN; YEAST (WET MOUNT) NO YEAST SEEN
[2018-02-10 06:56] VITALS: BP 119/64
[2018-02-10 07:02] LABS: CHLAM PCR NOT DETECTED (NOT DETECT); GON PCR NOT DETECTED (NOT DETECT)
== END 2018-02-10 06:50 | disposition home or self-care (01) ==
LOC: ER 03:08
DX: N93.9 Abnormal uterine and vaginal bleeding, unspecified (principal); R10.2 Pelvic and perineal pain; R42 Dizziness and giddiness; J45.909 Unspecified asthma, uncomplicated; Z88.1 Allergy status to other antibiotic agents; Z88.3 Allergy status to other anti-infective agents; Z87.42 Personal history of other diseases of the female genital tract; Z79.899 Other long term (current) drug therapy
CPT/HCPCS: 36415; 84703; 85025; 87210; 87491; 87591; 99284

== ENCOUNTER → 2018-04-13 | Outpatient (CLI) | payer OTHER ==
--- NOTE | 2018-04-13 13:54 | RADIOLOGY REPORT (SQ) ---
EXAM DESCRIPTION: LUMBAR SPINE COMPLETE COMPLETED DATE/TIME: 04/13/2018 1:15 pm REASON FOR STUDY: LUMBAR SPINE PAIN M53.3 SACROCOCCYGEAL DISORDERS, NOT ELSEWHERE CLASSIFIED M54.5 LOW BACK PAIN COMPARISON: None. NUMBER OF VIEWS: Five views including obliques. TECHNIQUE: AP, lateral, oblique, and sacral radiographic images acquired of the lumbar spine. LIMITATIONS: None. FINDINGS: MINERALIZATION: Normal. SEGMENTATION: Normal. No transitional anatomy. ALIGNMENT: Normal. VERTEBRAE: Maintained height. No fracture or worrisome bone lesion. DISCS: Preserved height. No significant osteophytes or end plate irregularity. POSTERIOR ELEMENTS: Pedicles and facets are intact. No pars defect or posterior arch defects. HARDWARE: None in the spine. PARASPINAL SOFT TISSUES: Normal. PELVIS: Intact as visualized. No fractures or worrisome bone lesions. SI joints intact. OTHER: No other significant finding. IMPRESSION: NORMAL 5 VIEW LUMBAR SPINE. TECHNICAL DOCUMENTATION: JOB ID: [id number] [employer]- All Rights Reserved Reading location - IP/workstation name: [email or web address]
--- NOTE | 2018-04-13 13:54 | RADIOLOGY REPORT (SQ) ---
EXAM DESCRIPTION: SACRUM AND COCCYX COMPLETED DATE/TIME: 04/13/2018 1:15 pm REASON FOR STUDY: LUMBAR SPINE PAIN, PAIN COCCYX M53.3 SACROCOCCYGEAL DISORDERS, NOT ELSEWHERE CLAS SIFIED M54.5 LOW BACK PAIN COMPARISON: None. NUMBER OF VIEWS: Three views. TECHNIQUE: AP, lateral, and tilt views of the sacrum and coccyx. LIMITATIONS: None. FINDINGS: MINERALIZATION: Normal. BONES: No acute fracture or dislocation. No worrisome bone lesions. SOFT TISSUES: No soft tissue swelling. No foreign body. OTHER: No other significant finding. IMPRESSION: NEGATIVE STUDY OF THE SACRUM AND COCCYX. TECHNICAL DOCUMENTATION: JOB ID: [id number] [employer]- All Rights Reserved Reading location - IP/workstation name: [email or web address]
== END ==
LOC: OD 12:42
PROVIDERS: ATTEND Physician Assistant
DX: M53.3 Sacrococcygeal disorders, not elsewhere classified (principal); M54.5 Low back pain
CPT/HCPCS: 72110; 72220

== ENCOUNTER 2018-06-16 08:33 | Emergency (ER) | payer OTHER ==
[2018-06-16 08:39] VITALS: BP 119/66
[2018-06-16] MEDS ORDERED: KETOROLAC TROMETHAMINE 60 MG/2 ML SDV IM ONE (09:17)
[2018-06-16] MEDS ORDERED: DEXAMETHASONE SOD PHOS INJ 10 MG/1 ML VIAL IM ONE (09:17)
[2018-06-16] MEDS ORDERED: LIDOCAINE 5% (700 MG) TRANSDERMAL ADH..PATCH TP ONE (09:18)
--- NOTE | 2018-06-16 09:28 | ER Document Report ---
ED Neck/Back Problem - General Chief Complaint: Back Pain Stated Complaint: JOINT/BACK PAIN Time Seen by Provider: 06/16/18 09:04 Primary Care Provider: JESU ECHEVARRIA PA [Primary Care Provider] - Follow up as needed Mode of Arrival: Ambulatory Information source: Patient Notes: 28-year-old female presents to ED for complaint of back pain from top to bottom. She states she has a history of lupus and she sees Dr. Wilson for the lupus and he said she saw him last month. She states her primary care doctor is Dr. Echevarria and she has requested multiple times that she send her to pain management but that she refuses states that she does not need to go she is too young for diagnosis she has or for pain management. Patient states she always has back pain but is been worse for the last week. TRAVEL OUTSIDE OF THE [place] IN LAST 30 DAYS: No - HPI Patient complains to provider of: Lower back Onset: Other - Chronic Onset: Chronic Timing: Still present Quality of pain: Sharp Severity: Severe Pain Level: 5 Recent injury: No Associated symptoms: Like prior neck/back pain, Radiation to leg, Lower back pain, Upper back pain, Other - No signs or symptoms of cauda equina, no saddle anesthesia, no loss control of bowel or bladders, no loss of sensation or control of lower extremities.. denies: Constipation, Fever, Incontinence, Motor loss, Numbness/tingling, Sensory loss, Sweaty, Unable to urinate Exacerbated by: Movement of neck, Movement of trunk, Sitting position Relieved by: Nothing Similar symptoms previously: Yes Recently seen / treated by doctor: Yes - Related Data Allergies/Adverse Reactions: ceftriaxone [From Rocephin] Allergy (Verified 06/16/18 09:04) metronidazole [From Flagyl] Allergy (Verified 06/16/18 09:04) Metronidazole HCl [From Flagyl] Allergy (Verified 06/16/18 09:04) tioconazole [From Monistat 1 (tioconazole)] Allergy (Verified 06/16/18 09:04) Amphetamine Aspartate * [From Adderall] Adverse Reaction (Verified 06/16/18 09:04) amphetamine sulfate [From Adderall] Adverse Reaction (Verified 06/16/18 09:04) Androgenic Anabolic Steroid Adverse Reaction (Verified 06/16/18 09:04) dextroamphetamine [From Adderall] Adverse Reaction (Verified 06/16/18 09:04) methylphenidate HCl [From Ritalin] Adverse Reaction (Verified 06/16/18 09:04) Past Medical History - General Information source: Patient - Social History Smoking Status: Current Every Day Smoker Cigarette use (# per day): Yes - 1 cigarette a day Smoking Education Provided: Yes - 4 minutes Frequency of alcohol use: None Drug Abuse: None Lives with: Family Family History: Reviewed & Not Pertinent Patient has suicidal ideation: No Patient has homicidal ideation: No - Medical History Medical History: Other - Chronic pain - Past Medical History Cardiac Medical History: Reports: None Pulmonary Medical History: Reports: Hx Asthma EENT Medical History: Reports: None Neurological Medical History: Reports: None Endocrine Medical History: Reports: Other - Lupus Renal/ Medical History: Reports: None Malignancy Medical History: Reports: None GI Medical History: Reports: Hx Gastroesophageal Reflux Disease Musculoskeletal Medical History: Reports Hx Musculoskeletal Deformity Skin Medical History: Reports None Psychiatric Medical History: Reports: Hx Attention Deficit Hyperactivity Disorder, Hx Depression - Major, Hx Post Traumatic Stress Disorder Traumatic Medical History: Reports: None Infectious Medical History: Reports: None Past Surgical History: Reports: Hx Section, Hx Gynecologic Surgery - , Hx Oral Surgery - wisdom teeth - Immunizations Hx Diphtheria, Pertussis, Tetanus Vaccination: Yes Review of Systems - Review of Systems Constitutional: No symptoms reported EENT: No symptoms reported Cardiovascular: No symptoms reported Respiratory: No symptoms reported Gastrointestinal: No symptoms reported Genitourinary: No symptoms reported Female Genitourinary: No symptoms reported Musculoskeletal: Back pain, Muscle pain, Muscle stiffness, Neck pain Skin: No symptoms reported Hematologic/Lymphatic: No symptoms reported Neurological/Psychological: No symptoms reported -: Yes All other systems reviewed and negative Physical Exam - Vital signs Vitals: Temp Pulse Resp BP Pulse Ox 98.5 F 93 18 119/66 98 06/16/18 08:38 06/16/18 08:38 06/16/18 08:38 06/16/18 08:38 06/16/18 08:38 Interpretation: Normal - General General appearance: Appears well, Alert - HEENT Head: Normocephalic, Atraumatic Eyes: Normal Pupils: PERRL - Respiratory Respiratory status: No respiratory distress Chest status: Nontender Breath sounds: Normal Chest palpation: Normal - Cardiovascular Rhythm: Regular Heart sounds: Normal auscultation Murmur: No - Abdominal Inspection: Normal Distension: No distension Bowel sounds: Normal Tenderness: Nontender Organomegaly: No organomegaly - Back Back: Normal, Tender, Vertebra tenderness. No: Deformity/step-off, CVA tenderness, Scars, Scoliosis, Wounds - Extremities General upper extremity: Normal inspection, Nontender, Normal color, Normal ROM, Normal temperature General lower extremity: Normal inspection, Nontender, Normal color, Normal ROM, Normal temperature, Normal weight bearing. No: Janki's sign - Neurological Neuro grossly intact: Yes Cognition: Normal Orientation: AAOx4 [place] Coma Scale Eye Opening: Spontaneous [place] Coma Scale Verbal: Oriented [place] Coma Scale Motor: Obeys Commands [place] Coma Scale Total: 15 Speech: Normal Motor strength normal: LUE, RUE, LLE, RLE Sensory: Normal - Psychological Associated symptoms: Normal affect, Normal mood - Skin Skin Temperature: Warm Skin Moisture: Dry Skin Color: Normal Course - Re-evaluation Re-evalutation: 06/16/18 21:52 After performing a Medical Screening Examination, I estimate there is LOW risk for EXPANDING OR RUPTURED ABDOMINAL AORTIC ANEURYSM, CAUDA EQUINA SYNDROME, EPIDURAL MASS LESION, or HERNIATED DISK CAUSING SEVERE SPINAL STENOSIS, thus I consider the discharge disposition reasonable. I have reevaluated this patient multiple times and no significant life threatening changes are noted. The patient and I have discussed the diagnosis and risks, and we agree with discha rging home and close follow-up. We also discussed returning to the Emergency Department immediately if new or worsening symptoms occur with the understanding that symptoms and presentations can change. We have discussed the symptoms which are most concerning (e.g., saddle anesthesia, urinary or bowel incontinence or retention, changing or worsening pain) that necessitate immediate return. - Vital Signs Vital signs: Temp Pulse Resp BP Pulse Ox 98.5 F 93 18 119/66 98 06/16/18 08:38 06/16/18 08:38 06/16/18 08:38 06/16/18 08:38 06/16/18 08:38 Discharge - Discharge Clinical Impression: Chronic back pain greater than 3 months duration Condition: Stable Disposition: HOME, SELF-CARE Additional Instructions: Chronic Pain Control Stress, inactivity, and depression make pain more severe regardless of the cause of the pain. Stress and poor physical condition can cause pain such as headaches and backache. Relaxation: Rest in a quiet place with your eyes closed for 20 minutes twice daily. Concentrate on a pleasant image, or simply "feel" your breathing. Clear your mind. Stress management: Deal with your "stressors." Either take action, or eliminate the stressor from your life. Don't let things hang over you. Accept those things you can't change. Nutrition: Eat small, balanced meals -- don't skip, don't overeat. Meals should be high-carbohydrate, low-sugar, low-fat. Exercise: Exercise helps painful conditions and eases stress. Get 30 minutes of moderate exercise, five days a week. Do an activity that does not flare your pain. Precautions: Pain which continues to disrupt daily activities, or which changes in nature, requires a medical evaluation. Pain Clinic referral is available. We do not manage chronic pain in the Emergency Department. We will try to appropriately help you through an acute flare of your chronic painful condition, but for on-going chronic pain that does not improve, you will need to see your private doctor or paintless dent repair technician. We do not provide repeated medication management of chronic painful conditions. If you wish, we can provide the name of local pain management physicians. Chronic Back Pain Chronic back pain (pain persisting longer than three months) is a common problem. A medical evaluation can look for herniated disc, arthritis, osteoporosis, tumors, and infections. But at least half the time, there's no obvious treatable cause. Anxiety and depression tend to worsen back pain. Ibuprofen or other anti-inflammatory medicine can help. A heating pad, used for 15-20 minutes at a time, can ease pain. For this type of back pain, narcotic medicines should be avoided. Muscle relaxers are rarely helpful unless you're having spasms. Activity is important. Find an aerobic exercise program that your back can tolerate. Too much rest makes back pain worse. Specific back exercises are usually prescribed to strengthen the back and abdominal muscles. Often, a physical therapist can help. Avoid heavy lifting, working while bent over, or standing with both knees straight. Most back pain patients do better with a firm mattress. If new symptoms of a "herniated disc" (radiation of pain, numbness, or tingling down the back of the leg or weakness in the leg) occur, you should be re-examined. LOW BACK PAIN: Three out of every four people will have an episode of disabling back pain during their lifetime. Most commonly the pain is due to straining of the muscles and ligaments in the low back. Usual treatment includes: (1) Rest on a firm surface. Avoid lying on your stomach. (2) Ice pack the painful area. After a few days, gentle heat may be used intermittently to relax the area, or ice packs can be continued. (3) Medication may be needed -- muscle relaxers and antiinflammatory medicines are commonly used. (4) As the back improves, exercises are prescribed to strengthen the back and abdominal muscles. Your doctor will advise you on the proper care for your back at each stage in your recovery. You may be better in a few days -- or healing may take several weeks. If new symptoms of a "herniated disc" (radiation of pain, numbness, or tingling down the back of the leg or weakness in the leg) occur, you should be re-examined. Further testing may be necessary. MUSCLE RELAXERS: Muscle relaxing medications are usually prescribed for acute muscle spasm or injury to the neck and back. They are often combined with antiinflammatory pain medication for increased relief. You may stop the muscle relaxer when the pain and stiffness have improved. Start the medication again if spasms recur. Muscle relaxers may cause drowsiness, especially with the first dose. Do not operate machinery or drive while under the effects of the medication. Most muscle relaxers last up to 24 hours. Do not combine the medication with alcohol. ICE PACKS: Apply ice packs frequently against the painful area. Many different schedules are recommended, such as "20 minutes on, 20 minutes off" or "one hour ice, two hours rest." If you need to work, you may need to go longer between ice treatments. You should plan to have the area ice packed AT LEAST one fourth of the time. The ice should be applied over the wrap, tape, or splint, or over a layer of cloth -- not directly against the skin. Some ice bags have a built-in cloth and can be put directly on the skin. WARM PACKS: After approximately two days, apply gentle heat (such as a heating pad or hot water bottle) for about 20 to 30 minutes about every two hours -- at least four times daily. Warmth and elevation will help you make a more rapid recovery, and will ease the pain considerably. Do not use HOT heat, and never apply heat for longer than 30 minutes. The continuous heat can invisibly damage skin and muscles -- even when no burn is seen on the surface. Damaged muscles can make you MORE sore. Toradol Injection You have been given an injection of ketorolac tromethamine (Toradol). This is an excellent, safe drug for pain control. It also has potent antiin flammatory action. You should have significant pain relief within about one hour. Toradol is not addicting and is non-sedating. It does not interfere with driving or work. Call or return if you develop itching, hives, shortness of breath, or rash. STEROID MEDICATION: You have been given an injection of medicine of the cortisone/steroid class. This medication is used to control inflammation or allergy. It is often continued as a pill for a short period of time, until the acute process subsides. There are usually no side effects from short-term use of cortisone-like medications. Some persons feel an increased sense of well-being and are not sleepy at bedtime. Long-term use of cortisone medications is best avoided, unless required for a severe condition. If your condition does not remit, or relapses after the course of corticosteroid medication, you should consult your physician. Stretching Exercises for the Back The physician has recommended that you begin stretching exercises for your back. These are often used even while the back is painful. However, you should notify the physician if the activities seem to increase your pain. PELVIC TILT: Lie flat on your back with knees bent. Tighten your stomach and buttock muscles so it flattens your lower back against the floor. Hold 10 seconds. Repeat 10 times, twice daily. KNEE RAISE: Lying on the back with knees bent, raise one knee to your chest, then the other. Hold both knees against the chest 10 seconds, then lower one knee at a time. Repeat 10 times, twice daily. PARTIAL TRUNK RAISE: Lie face down, arms at your sides. Keeping your waist on the floor, use your arms raise your chest up. Support yourself on your elbows for 30 seconds. Repeat twice daily, increasing the time to two minutes as you recover. FOLLOW-UP CARE: If you have been referred to a physician for follow-up care, call the physicians office for an appointment as you were instructed or within the next two days. If you experience worsening or a significant change in your symptoms, notify the physician immediately or return to the Emergency Department at any time for re-evaluation. Prescriptions: Lidocaine [Lidoderm 5% (700 mg) Transdermal Patch] 1 patch TP DAILY #30 adh..patch Methocarbamol [Robaxin 500 mg Tablet] 500 mg PO BID PRN #14 tablet PRN Reason: For Pain Forms: Smoking Cessation Education Referrals: JESU ECHEVARRIA PA [Primary Care Provider] - Follow up as needed
== END 2018-06-16 09:53 | disposition home or self-care (01) ==
LOC: ER 08:33
DX: G89.29 Other chronic pain (principal); M54.9 Dorsalgia, unspecified; F17.210 Nicotine dependence, cigarettes, uncomplicated
CPT/HCPCS: 99406; 99283; 96372; 82962; J1885; J1100

== ENCOUNTER 2018-08-07 00:29 | Emergency (ER) | payer OTHER ==
[2018-08-07 00:52] VITALS: BP 126/69
[2018-08-07] MEDS ORDERED: IBUPROFEN 800 MG TABLET PO ONE (01:01)
--- NOTE | 2018-08-07 01:02 | ER Document Report ---
ED Medical Screen (RME) - General Chief Complaint: Chest Pain Stated Complaint: NECK PAIN Time Seen by Provider: 08/07/18 01:00 Primary Care Provider: JESU PORTILLO PA [Primary Care Provider] - Follow up as needed Notes: Patient is a 28-year-old female presents to the emergency department for left- sided chest pain. Patient states she does have a history of lupus and chronic pain. States she has a referral for chronic pain management but has not seen anyone yet. Patient states tonight after getting her daughter out of her car seat she developed some chest pain. States that the left side of her chest radiating around to her back and also up into her neck. States it hurts more when you palpate and more when she takes a deep breath. Patient states she does have a history of asthma and took her at home albuterol which did not help at all. GENERAL: Alert, interacts well. No acute distress. LUNGS: Clear to auscultation bilaterally, no wheezes, rales, or rhonchi. No respiratory distress. HEART: Regular rate and rhythm. No murmur I have greeted and performed a rapid initial assessment of this patient. A comprehensive ED assessment and evaluation of the patient, analysis of test results and completion of the medical decision making process will be conducted by additional ED providers. TRAVEL OUTSIDE OF THE [place] IN LAST 30 DAYS: No - Related Data Allergies/Adverse Reactions: ceftriaxone [From Rocephin] Allergy (Verified 06/16/18 09:04) metronidazole [From Flagyl] Allergy (Verified 06/16/18 09:04) Metronidazole HCl [From Flagyl] Allergy (Verified 06/16/18 09:04) tioconazole [From Monistat 1 (tioconazole)] Allergy (Verified 06/16/18 09:04) Amphetamine Aspartate * [From Adderall] Adverse Reaction (Verified 06/16/18 09:04) amphetamine sulfate [From Adderall] Adverse Reaction (Verified 06/16/18 09:04) Androgenic Anabolic Steroid Adverse Reaction (Verified 06/16/18 09:04) dextroamphetamine [From Adderall] Adverse Reaction (Verified 06/16/18 09:04) methylphenidate HCl [From Ritalin] Adverse Reaction (Verified 06/16/18 09:04) Past Medical History - Past Medical History Cardiac Medical History: Denies: Hx Hypertension Pulmonary Medical History: Reports: Hx Asthma Endocrine Medical History: Denies: Hx Diabetes Mellitus Type 1, Hx Diabetes Mellitus Type 2 Renal/ Medical History: Denies: Hx Peritoneal Dialysis, Hx Renal Insufficiency GI Medical History: Reports: Hx Gastroesophageal Reflux Disease Musculoskeltal Medical History: Reports Hx Musculoskeletal Deformity Psychiatric Medical History: Reports: Hx Attention Deficit Hyperactivity Disorder, Hx Bipolar Disorder, Hx Depression - Major, Hx Post Traumatic Stress Disorder Past Surgical History: Reports: Hx Section, Hx Gynecologic Surgery - , Hx Oral Surgery - wisdom teeth - Immunizations Hx Diphtheria, Pertussis, Tetanus Vaccination: Yes Physical Exam - Vital signs Vitals: Temp Pulse Resp BP Pulse Ox 98.3 F 92 16 126/69 H 98 08/07/18 00:45 08/07/18 00:45 08/07/18 00:45 08/07/18 00:45 08/07/18 00:45 Course - Vital Signs Vital signs: Temp Pulse Resp BP Pulse Ox 98.3 F 92 16 126/69 H 98 08/07/18 00:45 08/07/18 00:45 08/07/18 00:45 08/07/18 00:45 08/07/18 00:45 Doctor's Discharge - Discharge Referrals: JESU PORTILLO PA [Primary Care Provider] - Follow up as needed
--- NOTE | 2018-08-07 01:27 | RADIOLOGY REPORT (SQ) ---
EXAM DESCRIPTION: XR CHEST 2 VIEWS COMPLETED DATE/TME: 08/07/2018 01:00 CLINICAL HISTORY: 28 years, Female, left CP Comparison: None FINDINGS: No focal lung consolidation. No pleural effusion. No pneumothorax. Cardiac and mediastinal silhouette is unremarkable. No acute osseous abnormality. Soft tissues are unremarkable. IMPRESSION: No acute findings. No focal lung consolidation.
== END 2018-08-07 03:20 | disposition left against medical advice (07) ==
LOC: ER 00:29
DX: R07.9 Chest pain, unspecified (principal); J45.909 Unspecified asthma, uncomplicated; Z88.1 Allergy status to other antibiotic agents; Z88.3 Allergy status to other anti-infective agents; Z53.20 Procedure and treatment not carried out because of patient's decision for unspecified reasons
CPT/HCPCS: 71046; 99281

== ENCOUNTER 2018-12-03 15:32 | Emergency (ER) | payer OTHER ==
[2018-12-03] MEDS ORDERED: ACETAMINOPHEN 325 MG TABLET PO ONE (16:12)
--- NOTE | 2018-12-03 16:13 | ER Document Report ---
ED Medical Screen (RME) - General Chief Complaint: Arm Injury Stated Complaint: FALL/ARM AND WRIST INJURY Time Seen by Provider: 12/03/18 16:10 Mode of Arrival: Ambulatory Information source: Patient Notes: 28-year-old female presents today with complaints of right hand right wrist pain. Reports she fell on her arm today. Has full range of motion complains of pain with motion. Good cap refill good radial pulse. No obvious deformity. Patient took ibuprofen earlier today at noon for the pain. Patient is ambidextrous I have greeted and performed a rapid initial assessment of this patient. A comprehensive ED assessment and evaluation of the patient, analysis of test results and completion of the medical decision making process will be conducted by additional ED providers. Dictation of this chart was performed using voice recognition software; therefore, there may be some unintended grammatical errors. TRAVEL OUTSIDE OF THE [place] IN LAST 30 DAYS: No - Related Data Allergies/Adverse Reactions: ceftriaxone [From Rocephin] Allergy (Verified 12/03/18 16:11) metronidazole [From Flagyl] Allergy (Verified 12/03/18 16:11) Metronidazole HCl [From Flagyl] Allergy (Verified 12/03/18 16:11) tioconazole [From Monistat 1 (tioconazole)] Allergy (Verified 12/03/18 16:11) Amphetamine Aspartate * [From Adderall] Adverse Reaction (Verified 12/03/18 16:11) amphetamine sulfate [From Adderall] Adverse Reaction (Verified 12/03/18 16:11) Androgenic Anabolic Steroid Adverse Reaction (Verified 12/03/18 16:11) dextroamphetamine [From Adderall] Adverse Reaction (Verified 12/03/18 16:11) methylphenidate HCl [From Ritalin] Adverse Reaction (Verified 12/03/18 16:11) Past Medical History - Past Medical History Cardiac Medical History: Denies: Hx Hypertension Pulmonary Medical History: Reports: Hx Asthma Endocrine Medical History: Denies: Hx Diabetes Mellitus Type 1, Hx Diabetes Mellitus Type 2 Renal/ Medical History: Denies: Hx Peritoneal Dialysis, Hx Renal Insufficiency GI Medical History: Reports: Hx Gastroesophageal Reflux Disease Musculoskeltal Medical History: Reports Hx Musculoskeletal Deformity Psychiatric Medical History: Reports: Hx Attention Deficit Hyperactivity Disorder, Hx Bipolar Disorder, Hx Depression - Major, Hx Post Traumatic Stress Disorder Past Surgical History: Reports: Hx Section, Hx Gynecologic Surgery - , Hx Oral Surgery - wisdom teeth - Immunizations Hx Diphtheria, Pertussis, Tetanus Vaccination: Yes Physical Exam - Vital signs Vitals: Temp Pulse Resp BP Pulse Ox 98.1 F 90 16 126/67 H 99 12/03/18 15:41 12/03/18 15:41 12/03/18 15:41 12/03/18 15:41 12/03/18 15:41 Course - Vital Signs Vital signs: Temp Pulse Resp BP Pulse Ox 98.1 F 90 16 126/67 H 99 12/03/18 15:41 12/03/18 15:41 12/03/18 15:41 12/03/18 15:41 12/03/18 15:41
--- NOTE | 2018-12-03 16:48 | RADIOLOGY REPORT (SQ) ---
EXAM DESCRIPTION: HAND RIGHT 3 VIEWS COMPLETED DATE/TIME: 12/03/2018 4:28 pm REASON FOR STUDY: pain, fell today COMPARISON: None. EXAM PARAMETERS: NUMBER OF VIEWS: Three views. TECHNIQUE: AP, lateral and oblique radiographic images acquired of the right hand. LIMITATIONS: None. FINDINGS: MINERALIZATION: Normal. BONES: No acute fracture or dislocation. No worrisome bone lesions. JOINTS: No effusions. SOFT TISSUES: No soft tissue swelling. No foreign body. OTHER: No other significant finding. IMPRESSION: NEGATIVE STUDY OF THE RIGHT HAND. NO RADIOGRAPHIC EVIDENCE OF ACUTE INJURY. TECHNICAL DOCUMENTATION: JOB ID: [id number] [employer]- All Rights Reserved Reading location - IP/workstation name: [email or web address]
--- NOTE | 2018-12-03 16:48 | RADIOLOGY REPORT (SQ) ---
EXAM DESCRIPTION: WRIST RIGHT 3 VIEWS COMPLETED DATE/TIME: 12/03/2018 4:28 pm REASON FOR STUDY: pain, fell today COMPARISON: Right hand three views same date NUMBER OF VIEWS: Three views. TECHNIQUE: AP, lateral, and oblique radiographic images acquired of the right wrist. LIMITATIONS: None. FINDINGS: MINERALIZATION: Normal. BONES: No acute fracture or dislocation. No worrisome bone lesions. Normal alignment. SOFT TISSUES: No soft tissue swelling. No foreign body. OTHER: No other significant finding. IMPRESSION: NEGATIVE STUDY OF THE RIGHT WRIST. NO RADIOGRAPHIC EVIDENCE OF ACUTE INJURY. TECHNICAL DOCUMENTATION: JOB ID: [id number] [employer]- All Rights Reserved Reading location - IP/workstation name: [email or web address]
--- NOTE | 2018-12-03 17:29 | ER Document Report ---
ED General - General Chief Complaint: Wrist Injury Stated Complaint: FALL/ARM AND WRIST INJURY Time Seen by Provider: 12/03/18 16:10 Mode of Arrival: Ambulatory TRAVEL OUTSIDE OF THE [place] IN LAST 30 DAYS: No - HPI Notes: Patient was tripped by her dog falling on her outstretched right hand. She has distal forearm pain and mild wrist pain. No other injuries he sustained did not hit head or lose consciousness. - Related Data Allergies/Adverse Reactions: ceftriaxone [From Rocephin] Allergy (Verified 12/03/18 16:11) metronidazole [From Flagyl] Allergy (Verified 12/03/18 16:11) Metronidazole HCl [From Flagyl] Allergy (Verified 12/03/18 16:11) tioconazole [From Monistat 1 (tioconazole)] Allergy (Verified 12/03/18 16:11) Amphetamine Aspartate * [From Adderall] Adverse Reaction (Verified 12/03/18 16:11) amphetamine sulfate [From Adderall] Adverse Reaction (Verified 12/03/18 16:11) Androgenic Anabolic Steroid Adverse Reaction (Verified 12/03/18 16:11) dextroamphetamine [From Adderall] Adverse Reaction (Verified 12/03/18 16:11) methylphenidate HCl [From Ritalin] Adverse Reaction (Verified 12/03/18 16:11) Past Medical History - General Information source: Patient - Social History Smoking Status: Former Smoker Chew tobacco use (# tins/day): No Frequency of alcohol use: None Drug Abuse: None Family History: Reviewed & Not Pertinent Patient has suicidal ideation: No Patient has homicidal ideation: No - Past Medical History Cardiac Medical History: Denies: Hx Hypertension Pulmonary Medical History: Reports: Hx Asthma Endocrine Medical History: Denies: Hx Diabetes Mellitus Type 1, Hx Diabetes Mellitus Type 2 Renal/ Medical History: Denies: Hx Peritoneal Dialysis, Hx Renal Insufficiency GI Medical History: Reports: Hx Gastroesophageal Reflux Disease Musculoskeletal Medical History: Reports Hx Musculoskeletal Deformity Psychiatric Medical History: Reports: Hx Attention Deficit Hyperactivity Disorder, Hx Bipolar Disorder, Hx Depression - Major, Hx Post Traumatic Stress Disorder Past Surgical History: Reports: Hx Section, Hx Gynecologic Surgery - , Hx Oral Surgery - wisdom teeth - Immunizations Hx Diphtheria, Pertussis, Tetanus Vaccination: Yes Review of Systems - Review of Systems Constitutional: No symptoms reported EENT: No symptoms reported Cardiovascular: No symptoms reported Respiratory: No symptoms reported Gastrointestinal: No symptoms reported Genitourinary: No symptoms reported Female Genitourinary: No symptoms reported Musculoskeletal: See HPI Skin: No symptoms reported Hematologic/Lymphatic: No symptoms reported Neurological/Psychological: No symptoms reported Physical Exam - Vital signs Vitals: Temp Pulse Resp BP Pulse Ox 98.1 F 90 16 126/67 H 99 12/03/18 15:41 12/03/18 15:41 12/03/18 15:41 12/03/18 15:41 12/03/18 15:41 - HEENT Head: Normocephalic, Atraumatic Eyes: Normal Pupils: PERRL - Respiratory Respiratory status: No respiratory distress Chest status: Nontender Breath sounds: Normal Chest palpation: Normal - Cardiovascular Rhythm: Regular Heart sounds: Normal auscultation Murmur: No - Extremities General upper extremity: Normal inspection, Other - Mild tenderness of the distal right forearm with no erythema abrasions or swelling. Palpation of shoulder and elbow on the right upper extremity elicits no pain. Palpation of all hand joints elicits no pain. No snuffbox tenderness Course - Re-evaluation Re-evalutation: 12/03/18 17:27 No findings on exam to suggest fracture. Discussed if pain is not improving after the next 10 to 14 days then patient is to seek medical reevaluation his hairline fractures cannot always be detected on initial radiographs. Patient verbally agrees and understands with plan. - Vital Signs Vital signs: Temp Pulse Resp BP Pulse Ox 98.1 F 90 16 126/67 H 99 12/03/18 15:41 12/03/18 15:41 12/03/18 15:41 12/03/18 15:41 12/03/18 15:41 - Diagnostic Test Radiology reviewed: Reports reviewed Discharge - Discharge Clinical Impression: Forearm pain Qualifiers: Laterality: right Qualified Code(s): M79.631 - Pain in right forearm Fall from standing Qualifiers: Encounter type: initial encounter Qualified Code(s): W19.XXXA - Unspecified fall, initial encounter Condition: Good Disposition: HOME, SELF-CARE Instructions: Wrist Sprain ([facility]) Additional Instructions: Please seek medical reevaluation in the next 10 to 14 days if symptoms are not improving his hairline fractures cannot always be detected on initial radiographs Prescriptions: Naproxen 500 mg PO BID 5 Days tablet
[2018-12-03 17:53] VITALS: BP 121/76
== END 2018-12-03 17:55 | disposition home or self-care (01) ==
LOC: ER 15:32
DX: M79.631 Pain in right forearm (principal); M25.531 Pain in right wrist; W01.0XXA Fall on same level from slipping, tripping and stumbling without subsequent striking against object, initial encounter; J45.909 Unspecified asthma, uncomplicated; Z88.1 Allergy status to other antibiotic agents; Z88.3 Allergy status to other anti-infective agents; Z87.891 Personal history of nicotine dependence
CPT/HCPCS: 99283